=== PATIENT | female | born 1965 | race Caucasian/White ===

== ENCOUNTER 2017-09-30 21:42 | Emergency (ER) | payer SELFPAY ==
[~2017-09-30] VITALS: Ht 157.5 cm; Wt 53.1 kg
[2017-09-30 21:51] VITALS: BP 139/91
--- NOTE | 2017-09-30 21:57 | PHYS DOC ---
Past Medical History Past Medical History: No Pertinent History Past Surgical History: Other Additional Past Surgical Histo: neck Smoking: Cigarettes Alcohol Use: Occasionally Drug Use: Marijuana Adult General Chief Complaint Chief Complaint: FLU SYMPTOM HPI HPI Patient is a 52 year old female presents to the emergency department by way of EMS. Patient was at the [facility] when she stated she started feeling like she was having flulike symptoms. She states that she has had 3 emesis with the last one being 45 minutes prior to arrival. Patient denies any blood in the emesis. Patient also stated denies any diarrhea. Patient does have a local grade fever upon admission here to the emergency department at 99.9. Patient denies obtaining a flu vaccination this year. She does state she has a history of asthma. She denies having to use her inhalers more frequently than normal. She does have a history of smoking. She does state she uses recreational drugs with marijuana being used approximately 2 days ago. Review of Systems Review of Systems Constitutional: Fever, complain of generalized body aches and discomfort. Eyes: Denies change in visual acuity, redness, or eye pain [] HENT: Denies nasal congestion or sore throat [] Respiratory: Denies cough or shortness of breath [] Cardiovascular: No additional information not addressed in HPI [] GI: Denies abdominal pain, complaining of nausea vomiting denies diarrhea : Denies dysuria or hematuria [] Musculoskeletal: Denies back pain or joint pain [] Integument: Denies rash or skin lesions [] Neurologic: Denies headache, focal weakness or sensory changes [] Endocrine: Denies polyuria or polydipsia [] All other systems were reviewed and found to be within normal limits, except as documented in this note. Current Medications Current Medications Current Medications Medications (Trade) Dose Ordered Sig/Aureliano Start Time Stop Time Status Last Admin Dose Admin Ketorolac Tromethamine (Toradol Im) 60 mg 1X ONCE 09/30/17 22:30 09/30/17 22:31 DC 09/30/17 22:16 60 MG Ondansetron HCl (Zofran Odt) 4 mg 1X ONCE 09/30/17 22:30 09/30/17 22:31 DC 09/30/17 22:15 4 MG Allergies Allergies Allergies Coded Allergies Type Severity Reaction Last Updated Verified Penicillins Allergy Intermediate 09/30/17 Yes cephalexin Allergy Mild hives 09/30/17 Yes codeine Adverse Reaction Mild vomiting 09/30/17 Yes Physical Exam Physical Exam Constitutional: Well developed, well nourished, no acute distress, non-toxic appearance. [] HENT: Normocephalic, atraumatic, bilateral external ears normal, oropharynx moist, no oral exudates, nose normal. Bilateral tympanic membranes appear to be normal. Patient with frontal and maxillary sinus tenderness. Patient with erythematous noted no exudate noted postnasal drip noted. Eyes: PERRLA, EOMI, conjunctiva normal, no discharge. [] Neck: Normal range of motion, no tenderness, supple, no stridor. [] Cardiovascular:Heart rate regular rhythm, no murmur [] Lungs & Thorax: Bilateral breath sounds clear to auscultation [] Skin: Warm, dry, no erythema, no rash. [] Extremities: No tenderness, no cyanosis, no clubbing, ROM intact, no edema. [] Neurologic: Alert and oriented X 3, normal motor function, normal sensory function, no focal deficits noted. [] Psychologic: Affect normal, judgement normal, mood normal. [] Current Patient Data Vital Signs Vital Signs Date Time Temp Pulse Resp B/P (MAP) Pulse Ox O2 Delivery O2 Flow Rate FiO2 09/30/17 21:51 99.8 108 24 98 Room Air 99.8 Lab Values Laboratory Tests Test 09/30/17 21:58 Influenza Type A Antigen Negative (NEGATIVE) Influenza Type B Antigen Negative (NEGATIVE) EKG EKG [] Radiology/Procedures Radiology/Procedures [] Course & Med Decision Making Course & Med Decision Making Pertinent Labs and Imaging studies reviewed. (See chart for details) Influenza swab was negative. Patient was provided with Zofran here in the emergency department was provided with by mouth fluids with no emesis noted. She was provided with Toradol for generalized body aches and discomfort as well as low-grade fever. Patient will be discharged home with prescription for Zofran with recommendations for clear liquid diet for the next 24 hours. Recommended Tylenol or ibuprofen for fever chills or generalized body aches and discomfort. Recommended that she follow-up to primary care physician within the next 3-5 days. Recommended that she stop smoking and to stop using recreational drugs. Patient will be discharged home in stable condition signs and symptoms to return back to the emergency department has been provided. All questions and concerns been answered at the patients bedside. [] Dragon Disclaimer Dragon Disclaimer This electronic medical record was generated, in whole or in part, using a voice recognition dictation system. Departure Departure Impression: Primary Impression: Viral infection Disposition: 01 HOME, SELF-CARE Condition: STABLE Patient Instructions: Clear Liquid Diet, [id number], Smoking Cessation, Tips For Success, Viral Infections, [id number] Additional Instructions: Activity as tolerated. Tylenol or ibuprofen for fever chills or generalized body aches and discomfort. Zofran as needed for nausea and vomiting. Clear liquid diet for the next 24 hours. Follow-up with primary care physician next 3-5 days. Return back to the emergency department for signs and symptoms that become worse. Scripts Ondansetron (ZOFRAN ODT) 4 Mg Tab.rapdis 1 TAB SL Q8HRS, #10 TAB Prov: ELVIA BAPTISTE APRN 09/30/17 ELVIA BAPTISTE APRN Sep 30, 2017 21:57
[2017-09-30] MEDS ORDERED: ONDANSETRON ODT 4 MG TAB.RAPDIS. PO ONE (22:30)
[2017-09-30] MEDS ORDERED: KETOROLAC 60 MG/2 ML INJ. IM ONE (22:30)
[2017-09-30 22:49] LABS: OBC FLU VALID
[2017-09-30] MEDS ORDERED: ONDA4TAB10 SL (22:55)
== END 2017-09-30 23:02 | disposition home or self-care (01) ==
LOC: ER 21:42
DX: B34.9 Viral infection, unspecified (principal); J45.909 Unspecified asthma, uncomplicated; F17.210 Nicotine dependence, cigarettes, uncomplicated; F12.10 Cannabis abuse, uncomplicated; Z88.0 Allergy status to penicillin; Z79.899 Other long term (current) drug therapy; Z88.1 Allergy status to other antibiotic agents; Z88.5 Allergy status to narcotic agent
CPT/HCPCS: 87804; 96372; 99284; J1885; Q0162

== ENCOUNTER 2018-09-03 10:46 | Emergency (ER) | payer SELFPAY ==
[~2018-09-03] VITALS: Ht 157.5 cm; Wt 53.1 kg
[~2018-09-03 10:46] MED LIST: ONDA4TAB10 SL
[2018-09-03 11:05] VITALS: BP 160/84
--- NOTE | 2018-09-03 11:52 | RAD ---
CT of the orbits without contrast, 09/03/2018: HISTORY: Vision reduction, recent foreign body removal from right eye Noncontrast scans were obtained as requested. The globes are unremarkable. There is no evidence of a retained radiopaque foreign body in either orbit. No orbital mass or unusual fluid collection is seen. No bony abnormality is detected. No free fluid is evident in the paranasal sinuses. IMPRESSION: No significant abnormality is detected. PQRS Compliance Statement: One or more of the following individualized dose reduction techniques were utilized for this examination: 1. Automated exposure control 2. Adjustment of the mA and/or kV according to patient size 3. Use of iterative reconstruction technique Electronically signed by: Camacho Erwin MD (09/03/2018 11:48 AM) [facility]
--- NOTE | 2018-09-03 12:09 | PHYS DOC ---
Past Medical History Past Medical History: No Pertinent History, Asthma Past Surgical History: Other Additional Past Surgical Histo: neck,BACK Alcohol Use: Occasionally Drug Use: Marijuana Adult General Chief Complaint Chief Complaint: EYE PROBLEMS HPI HPI Patient is a 53 year old [f__sex] who presents with [] Review of Systems Review of Systems Constitutional: Denies fever or chills [] Eyes: Denies change in visual acuity, redness, or eye pain [] HENT: Denies nasal congestion or sore throat [] Respiratory: Denies cough or shortness of breath [] Cardiovascular: No additional information not addressed in HPI [] GI: Denies abdominal pain, nausea, vomiting, bloody stools or diarrhea [] : Denies dysuria or hematuria [] Musculoskeletal: Denies back pain or joint pain [] Integument: Denies rash or skin lesions [] Neurologic: Denies headache, focal weakness or sensory changes [] Endocrine: Denies polyuria or polydipsia [] All other systems were reviewed and found to be within normal limits, except as documented in this note. Allergies Allergies Allergies Coded Allergies Type Severity Reaction Last Updated Verified Penicillins Allergy Intermediate 09/30/17 Yes cephalexin Allergy Mild hives 09/30/17 Yes codeine Adverse Reaction Mild vomiting 09/30/17 Yes Physical Exam Physical Exam Constitutional: Well developed, well nourished, no acute distress, non-toxic appearance. [] HENT: Normocephalic, atraumatic, bilateral external ears normal, oropharynx moist, no oral exudates, nose normal. [] Eyes: PERRLA, EOMI, conjunctiva normal, no discharge. [] Neck: Normal range of motion, no tenderness, supple, no stridor. [] Cardiovascular:Heart rate regular rhythm, no murmur [] Lungs & Thorax: Bilateral breath sounds clear to auscultation [] Abdomen: Bowel sounds normal, soft, no tenderness, no masses, no pulsatile masses. [] Skin: Warm, dry, no erythema, no rash. [] Back: No tenderness, no CVA tenderness. [] Extremities: No tenderness, no cyanosis, no clubbing, ROM intact, no edema. [] Neurologic: Alert and oriented X 3, normal motor function, normal sensory function, no focal deficits noted. [] Psychologic: Affect normal, judgement normal, mood normal. [] Current Patient Data Vital Signs Vital Signs Date Time Temp Pulse Resp B/P (MAP) Pulse Ox O2 Delivery O2 Flow Rate FiO2 09/03/18 11:05 98.6 97 20 160/84 (109) 99 Room Air 98.6 EKG EKG [] Radiology/Procedures Radiology/Procedures [] Course & Med Decision Making Course & Med Decision Making Pertinent Labs and Imaging studies reviewed. (See chart for details) [] Dragon Disclaimer Dragon Disclaimer This electronic medical record was generated, in whole or in part, using a voice recognition dictation system. Departure Departure Impression: Primary Impression: Blurry vision Disposition: HOME, SELF-CARE Condition: STABLE Referrals: NO PCP (PCP) HORACIO WINSTON MD Patient Instructions: Eye - Blurred Vision Additional Instructions: Follow-up with ophthalmology tomorrow for a more comprehensive check of your eye. If worsening return to the emergency department. MARTY MENDIOLA APRN Sep 03, 2018 12:09
== END 2018-09-03 12:22 | disposition home or self-care (01) ==
LOC: ER 10:46
DX: H53.8 Other visual disturbances (principal); J45.909 Unspecified asthma, uncomplicated; Z88.0 Allergy status to penicillin; Z88.1 Allergy status to other antibiotic agents; Z88.5 Allergy status to narcotic agent
CPT/HCPCS: 70480; 99284

== ENCOUNTER 2018-11-23 12:04 | Emergency (ER) | payer SELFPAY ==
[~2018-11-23] VITALS: Ht 157.5 cm; Wt 55.3 kg
[~2018-11-23 12:04] MED LIST changes: +CIPR500T94 PO; +ONDA4TAB7 PO
[2018-11-23 12:16] VITALS: BP 137/86
--- NOTE | 2018-11-23 12:47 | PHYS DOC ---
Past Medical History Past Medical History: Asthma, Bipolar, COPD, Depression Past Surgical History: Other Additional Past Surgical Histo: neck,BACK Alcohol Use: Occasionally Drug Use: Marijuana Adult General Chief Complaint Chief Complaint: ITCHING HPI HPI Patient is a 53 year old female with history of depression, bipolar, anxiety, asthma, who presents today complaining of itching for the last 3 weeks. Patient states she's been itching so much that she can't sleep. She is also complaining of bruising from the itching. Patient states symptoms began 3 weeks ago after she visited the mother. Patient states she has attempted to clean everything at home but her symptoms are not clearing up. She states she's tried over-the- counter remedies with no success. Review of Systems Review of Systems Constitutional: Reports insomnia. Denies fever or chills [] Musculoskeletal: Denies back pain or joint pain [] Integument: Reports itching and bruising. Neurologic: Denies headache, focal weakness or sensory changes [] All other systems were reviewed and found to be within normal limits, except as documented in this note. Allergies Allergies Allergies Coded Allergies Type Severity Reaction Last Updated Verified Penicillins Allergy Intermediate 09/30/17 Yes cephalexin Allergy Mild hives 09/30/17 Yes codeine Adverse Reaction Mild vomiting 09/30/17 Yes Physical Exam Physical Exam Constitutional: Well developed, well nourished, no acute distress, non-toxic appearance. [] Skin: Very dry skin, patient is actively itching in the ED. Old bruising noted to bilateral inner thighs. Back: No tenderness, no CVA tenderness. [] Extremities: No tenderness, no cyanosis, no clubbing, ROM intact, no edema. [] Neurologic: Alert and oriented X 3, normal motor function, normal sensory function, no focal deficits noted. [] Psychologic: Affect normal, judgement normal, mood normal. [] Current Patient Data Vital Signs Vital Signs Date Time Temp Pulse Resp B/P (MAP) Pulse Ox O2 Delivery O2 Flow Rate FiO2 11/23/18 12:16 97.9 91 18 137/86 (103) 98 Room Air 97.9 EKG EKG [] Radiology/Procedures Radiology/Procedures [] Course & Med Decision Making Course & Med Decision Making Pertinent Labs and Imaging studies reviewed. (See chart for details) This is a 53-year-old female patient presented to the ED today with itching for 3 weeks. Patient has tried [id number] remedies with no relief. Patient was discharged with Atarax and triamcinolone cream. Follow-up with PCP in 1-2 weeks. Rosmery Disclaimer Dragon Disclaimer This electronic medical record was generated, in whole or in part, using a voice recognition dictation system. Departure Departure Impression: Primary Impression: Itching Disposition: HOME, SELF-CARE Condition: STABLE Referrals: NO PCP (PCP) AMBERLY CHOU MD follow up in 1-2 weeks Patient Instructions: Itching-Brief Additional Instructions: You have evaluated in the emergency room for itching. Take the medication ordered as prescribed. Follow-up with your doctor or the provided specialist in 1-2 weeks as needed. Scripts Triamcinolone Acetonide (TRIAMCINOLONE ACETONIDE 0.1% OINT) 15 Gm Oint...g. 1 KIAN TP TID for WOUND CARE, #1 TUBE Prov: DANNIE FELIX APRN 11/23/18 Hydroxyzine Hcl (HYDROXYZINE HCL) 50 Mg Tablet 50 MG PO TID, #90 TAB Prov: DANNIE FELIX APRN 11/23/18 DANNIE FELIX APRN Nov 23, 2018 12:47
[2018-11-23] MEDS ORDERED: HYDR50TA PO (12:57)
[2018-11-23] MEDS ORDERED: TRIA15OI TP (12:57)
== END 2018-11-23 13:08 | disposition home or self-care (01) ==
LOC: ER 12:04
DX: L29.9 Pruritus, unspecified (principal); R23.3 Spontaneous ecchymoses; F31.9 Bipolar disorder, unspecified; J44.9 Chronic obstructive pulmonary disease, unspecified; Z88.0 Allergy status to penicillin; Z88.1 Allergy status to other antibiotic agents; Z88.5 Allergy status to narcotic agent
CPT/HCPCS: 99283

== ENCOUNTER 2018-11-25 11:11 | Emergency (ER) | payer SELFPAY ==
[~2018-11-25] VITALS: Ht 157.5 cm; Wt 55.3 kg
[~2018-11-25 11:11] MED LIST changes: +HYDR50TA PO; +TRIA15OI TP
[2018-11-25 11:35] LABS: BILIRUBIN,URINE NEGATIVE (NEG); CLARITY,URINE CLEAR; COLOR,URINE YELLOW; NITRITE,URINE NEGATIVE (NEG); PROTEIN,URINE NEGATIVE (NEG-TRACE)
[2018-11-25 11:37] VITALS: BP 120/75
[2018-11-25 11:52] LABS: BACTERIA,URINE FEW /HPF (0-FEW); SQUAMOUS EPITHELIAL CELL,UR MOD /LPF
[2018-11-25] MEDS ORDERED: CYCL10TA2 PO (12:17)
[2018-11-25] MEDS ORDERED: DICL50TA4 PO (12:17)
--- NOTE | 2018-11-25 12:18 | PHYS DOC ---
Past Medical History Past Medical History: Asthma, Bipolar, COPD, Depression (DANNIE FELIX APRN) Past Surgical History: Other Additional Past Surgical Histo: neck,BACK (DANNIE FELIX APRN) Alcohol Use: Occasionally Drug Use: Marijuana (DANNIE FELIX APRN) Adult General Chief Complaint Chief Complaint: PAIN ON URINATION [facility] HPI Patient is a 53 year old female with history of depression, COPD, bipolar, who presents to the ED today stating she's had dysuria for 6 weeks. Patient states she was seen in the ED 6 weeks ago, was diagnosed with UTI and sent home with antibiotics, patient states she never filled the prescription because she had other family issues going on. She is requesting the prescription, informed patient I will check her urine before I give her any prescription. (DANNIE FELIX APRN) Review of Systems Review of Systems Constitutional: Denies fever or chills [] Eyes: Denies change in visual acuity, redness, or eye pain [] HENT: Denies nasal congestion or sore throat [] Respiratory: Denies cough or shortness of breath [] Cardiovascular: No additional information not addressed in HPI [] GI: Denies abdominal pain, nausea, vomiting, bloody stools or diarrhea [] : Reports dysuria, denies hematuria [] Musculoskeletal: Denies back pain or joint pain [] Integument: Denies rash or skin lesions [] Neurologic: Denies headache, focal weakness or sensory changes [] All other systems were reviewed and found to be within normal limits, except as documented in this note. (DANNIE FELIX APRN) Allergies Allergies Allergies Coded Allergies Type Severity Reaction Last Updated Verified Penicillins Allergy Intermediate 09/30/17 Yes cephalexin Allergy Mild hives 09/30/17 Yes codeine Adverse Reaction Mild vomiting 09/30/17 Yes (HUNTER RODRIGUEZ MD) Physical Exam Physical Exam Constitutional: Well developed, well nourished, no acute distress, non-toxic appearance. [] HENT: Normocephalic, atraumatic, bilateral external ears normal, oropharynx moist, no oral exudates, nose normal. [] Eyes: PERRLA, EOMI, conjunctiva normal, no discharge. [] Neck: Normal range of motion, no tenderness, supple, no stridor. [] Cardiovascular:Heart rate regular rhythm, no murmur [] Lungs & Thorax: Bilateral breath sounds clear to auscultation [] Abdomen: Bowel sounds normal, soft, no tenderness, no masses, no pulsatile masses. [] Skin: Warm, dry, no erythema, no rash. [] Back: No tenderness, no CVA tenderness. [] Extremities: No tenderness, no cyanosis, no clubbing, ROM intact, no edema. [] Neurologic: Alert and oriented X 3, normal motor function, normal sensory function, no focal deficits noted. [] Psychologic: Affect normal, judgement normal, mood normal. [] (DANNIE FELIX APRN) Current Patient Data Vital Signs Vital Signs Date Time Temp Pulse Resp B/P (MAP) Pulse Ox O2 Delivery O2 Flow Rate FiO2 11/25/18 11:37 98.9 71 16 120/75 (90) 99 Room Air 98.9 (HUNTER RODRIGUEZ MD) Lab Values Laboratory Tests Test 11/25/18 11:26 Urine Collection Type Unknown Urine Color Yellow Urine Clarity Clear Urine pH 7.0 Urine Specific [place] 1.015 Urine Protein Negative mg/dL (NEG-TRACE) Urine Glucose (UA) Negative mg/dL (NEG) Urine Ketones (Stick) Negative mg/dL (NEG) Urine Blood Negative (NEG) Urine Nitrite Negative (NEG) Urine Bilirubin Negative (NEG) Urine Urobilinogen Dipstick 1.0 mg/dL (0.2 mg/dL) Urine Leukocyte Esterase Negative (NEG) Urine RBC 1-2 /HPF (0-2) Urine WBC 1-4 /HPF (0-4) Urine Squamous Epithelial Cells Mod /LPF Urine Bacteria Few /HPF (0-FEW) Urine Mucus Slight /LPF (HUNTER RODRIGUEZ MD) EKG EKG [] (DANNIE FELIX APRN) Radiology/Procedures Radiology/Procedures [] (DANNIE FELIX APRN) Course & Med Decision Making Course & Med Decision Making Pertinent Labs and Imaging studies reviewed. (See chart for details) This is a 53-year-old female patient presenting to the ED today requesting a prescription for antibiotics. She's had dysuria for 6 weeks. She states she was seen in the ED 6 weeks ago and was given prescription for antibiotics which she did not fill because of other family issues. Urine analysis today has no infection, no blood. Patient was discharged to home. Instructed to follow-up with PCP in 1-2 weeks. (DANNIE FELIX APRN) Course & Med Decision Making Staff Physician Addendum: I was working in the ER during the course of this patient's visit. I was available for consultation as needed, but I was not directly involved in the care of this patient. (HUNTER RODRIGUEZ MD) Dragon Disclaimer Dragon Disclaimer This electronic medical record was generated, in whole or in part, using a voice recognition dictation system. (DANNIE FELIX APRN) Departure Departure Impression: Primary Impression: Dysuria Disposition: HOME, SELF-CARE Condition: STABLE Referrals: NO PCP (PCP) Follow-up with your doctor in 1-2 weeks Patient Instructions: Dysuria-Brief Additional Instructions: You were evaluated in the emergency room for dysuria. Your urine analysis shows there is no infection in your urine right now, we will culture the urine if it grows any infection we will let you know. Take the prescribed medications as needed for pain. Continue pushing fluids. Follow-up with your doctor in 2 weeks. Scripts Cyclobenzaprine Hcl (CYCLOBENZAPRINE HCL) 10 Mg Tablet 1 TAB PO TID, #30 TAB Prov: DANNIE FELIX APRN 11/25/18 Diclofenac Sodium (DICLOFENAC SODIUM) 50 Mg Tablet. 1 TAB PO BID, #60 TAB 0 Refills Prov: DANNIE FELIX APRN 11/25/18 DANNIE FELIX APRN Nov 25, 2018 12:18 HUNTER RODRIGUEZ MD Nov 25, 2018 17:27
== END 2018-11-25 12:23 | disposition home or self-care (01) ==
LOC: ER 11:11
DX: R30.0 Dysuria (principal); J44.9 Chronic obstructive pulmonary disease, unspecified; F31.9 Bipolar disorder, unspecified; Z88.0 Allergy status to penicillin; Z88.5 Allergy status to narcotic agent; Z88.1 Allergy status to other antibiotic agents
CPT/HCPCS: 81001; 99283

== ENCOUNTER 2018-12-05 11:38 | Emergency (ER) | payer SELFPAY ==
[~2018-12-05] VITALS: Ht 157.5 cm; Wt 58.1 kg
[~2018-12-05 11:38] MED LIST changes: +CYCL10TA2 PO; +DICL50TA4 PO
[2018-12-05 12:22] LABS: BILIRUBIN,URINE NEGATIVE (NEG); CLARITY,URINE CLEAR; COLOR,URINE YELLOW; NITRITE,URINE NEGATIVE (NEG); PROTEIN,URINE NEGATIVE (NEG-TRACE); UROBILINOGEN,URINE 0.2 mg/dL (0.2 mg/dL)
[2018-12-05 12:32] LABS: BACTERIA,URINE FEW /HPF (0-FEW); RBC,URINE 0 /HPF (0-2); SQUAMOUS EPITHELIAL CELL,UR MOD /LPF; WBC,URINE OCC /HPF (0-4)
[2018-12-05 12:58] LABS: BASO # 0.1 x10^3/uL (0.0-0.2); BASO % 1 % (0-3); EOS # 0.3 x10^3/uL (0.0-0.7); EOS % 4 % (0-3); HEMATOCRIT 38.9 % (36.0-47.0); HEMOGLOBIN 13.2 g/dL (12.0-15.5); LYMPH # 2.4 x10^3/uL (1.0-4.8); LYMPH % 31 % (24-48); MEAN CORPUSCULAR HEMOGLOBIN 30 pg (25-35); MEAN CORPUSCULAR HGB CONC 34 g/dL (31-37); MEAN CORPUSCULAR VOLUME 88 fL (79-100); MONO # 0.6 x10^3/uL (0.0-1.1); MONO % 8 % (0-9); NEUT # 4.4 x10^3uL (1.8-7.7); NEUT % 57 % (31-73); PLATELET COUNT 290 x10^3/uL (140-400); RED BLOOD COUNT 4.41 x10^6/uL (3.50-5.40); RED CELL DISTRIBUTION WIDTH 13.7 % (11.5-14.5); WHITE BLOOD COUNT 7.6 x10^3/uL (4.0-11.0)
[2018-12-05 13:07] LABS: CREATININE 0.8 mg/dL (0.6-1.0); POTASSIUM 4.5 mmol/L (3.5-5.1)
[2018-12-05 13:13] LABS: ALBUMIN 3.4 g/dL (3.4-5.0); ALBUMIN/GLOBULIN RATIO 0.6 (1.0-1.7); PROTHROMBIN TIME PATIENT 15.1 SEC (11.7-14.0); TOTAL BILIRUBIN 0.3 mg/dL (0.2-1.0)
[2018-12-05 13:21] LABS: CREATINE KINASE 55 U/L (26-192)
[2018-12-05] MEDS ORDERED: fentaNYL PF VIAL 100 MCG/2 ML VIAL IV ONE (14:45)
[2018-12-05] MEDS ORDERED: IOHEXOL 300 MG/ML 100ML VIAL. ONE (15:16)
--- NOTE | 2018-12-05 15:48 | RAD ---
CT ABD PELV W/ IV CONTRST ONLY Indication: RIGHT SIDE ABDOMINAL PAIN, FLANK PAIN X 1 DAY
IV OMNI 300 75 MLS Exposure: One or more of the following individualized dose reduction techniques were utilized for this examination: 1. Automated exposure control 2. Adjustment of the mA and/or kV according to patient size 3. Use of iterative reconstruction technique. Comparison: None are available. Contrast: Intravenous contrast was given. No oral contrast per request. Findings: Lung bases are clear. Liver mildly enlarged. Spleen borderline enlarged at 12 cm. Pancreas unremarkable. No adrenal mass. Symmetric renal enhancement. There appear to be a tiny nonobstructive renal calculi bilaterally. No hydronephrosis. No calcified gallstone. No significant aortic aneurysm. No significant lymph node enlargement. No evidence of bowel obstruction. No evidence of acute colitis. At least a portion of a normal appendix is thought to be visualized. No inflammatory type changes are seen in the right lower quadrant. No ascites or pneumoperitoneum. The urinary bladder is not adequately distended for evaluation. No evidence of pelvic mass. Mild degenerative changes of the spine. Endplate irregularity is likely developmental. Mild lumbar stenosis. Degenerative changes at the sacroiliac joints with subchondral sclerosis. IMPRESSION: 1. No evidence of acute abnormality or acute appendicitis. 2. Mild hepatomegaly. 3. Borderline splenic enlargement. 4. There may be tiny nonobstructive renal calculi bilaterally. Electronically signed by: Ruben Mackey MD (12/05/2018 3:44 PM) [facility]
--- NOTE | 2018-12-05 17:15 | RAD ---
Examination: ABDOMEN COMPLETE History: RUQ PAIN, HEP C Comparison/Correlation: None Findings: Upper abdominal ultrasound exam was performed. Hepatic echotexture is at the upper limit of normal. Pablo's lobe of the liver evident. No biliary dilatation. Gallbladder is normal. No cholelithiasis or findings of cholecystitis. Portal venous flow is normal. Right kidney measures 10.4 seen by 5.2 cm x 4.1 cm P left kidney measures 9.18 x 4.16 x 4 cm. No hydronephrosis or nephrolithiasis. Renal contours are unremarkable. Proximal pancreas is normal. Distal pancreas is obscured by bowel gas. Spleen is unremarkable. Abdominal aorta is unremarkable. Inferior vena cava is unremarkable. No upper abdominal ascites. Impression: No acute process. Unremarkable exam. Electronically signed by: Brian Bryant MD (12/05/2018 5:12 PM) [id number]
--- NOTE | 2018-12-05 17:51 | PHYS DOC ---
Past Medical History Past Medical History: No Pertinent History Past Surgical History: Other Additional Past Surgical Histo: neck,BACK Alcohol Use: None Drug Use: None Adult General Chief Complaint Chief Complaint: ABDOMINAL PAIN HPI HPI Patient is a 53 year old female who presented ER today for evaluation of bilateral flank pain that radiated to her right side started last night. Patient could not sleep last night due to the pain. The pain is on the right side. Patient denies any nausea vomiting. Patient denies any fever. She denies any cough, no fever. Patient denies any trouble breathing. Review of Systems Review of Systems Constitutional: Denies fever or chills [] Eyes: Denies change in visual acuity, redness, or eye pain [] HENT: Denies nasal congestion or sore throat [] Respiratory: Denies cough or shortness of breath [] Cardiovascular: No additional information not addressed in HPI [] GI: Positive for abdominal pain, NO nausea, vomiting, bloody stools or diarrhea [] : Denies dysuria or hematuria [] Musculoskeletal: Denies back pain or joint pain [] Integument: Denies rash or skin lesions [] Neurologic: Denies headache, focal weakness or sensory changes [] Endocrine: Denies polyuria or polydipsia [] All other systems were reviewed and found to be within normal limits, except as documented in this note. Current Medications Current Medications Current Medications Medications (Trade) Dose Ordered Sig/Aureliano Start Time Stop Time Status Last Admin Dose Admin Fentanyl Citrate (Fentanyl 2ml Vial) 50 mcg 1X ONCE 12/05/18 14:45 12/05/18 14:46 DC 12/05/18 14:56 50 MCG Iohexol (Omnipaque 300 Mg/ml) 100 ml STK-MED ONCE 12/05/18 15:16 12/05/18 15:17 DC Allergies Allergies Allergies Coded Allergies Type Severity Reaction Last Updated Verified Penicillins Allergy Intermediate 09/30/17 Yes cephalexin Allergy Mild hives 09/30/17 Yes codeine Adverse Reaction Mild vomiting 09/30/17 Yes Physical Exam Physical Exam Constitutional: Well developed, well nourished, no acute distress, non-toxic appearance. [] HENT: Normocephalic, atraumatic, bilateral external ears normal, oropharynx moist, no oral exudates, nose normal. [] Eyes: PERRLA, EOMI, conjunctiva normal, no discharge. [] Neck: Normal range of motion, no tenderness, supple, no stridor. [] Cardiovascular:Heart rate regular rhythm, no murmur [] Lungs & Thorax: Bilateral breath sounds clear to auscultation [] Abdomen: Bowel sounds normal, soft, there was tenderness to palpation in RUQ, RIGHT FLANK, no masses, no pulsatile masses. [] Skin: Warm, dry, no erythema, no rash. [] Back: No tenderness, no CVA tenderness. [] Extremities: No tenderness, no cyanosis, no clubbing, ROM intact, no edema. [] Neurologic: Alert and oriented X 3, normal motor function, normal sensory function, no focal deficits noted. [] Psychologic: Affect normal, judgement normal, mood normal. [] Current Patient Data Vital Signs Vital Signs Date Time Temp Pulse Resp B/P (MAP) Pulse Ox O2 Delivery O2 Flow Rate FiO2 12/05/18 18:00 90 16 123/78 (93) 99 Room Air 12/05/18 12:06 97.8 97.8 Lab Values Laboratory Tests Test 12/05/18 11:59 12/05/18 12:47 Urine Collection Type Unknown Urine Color Yellow Urine Clarity Clear Urine pH 6.0 Urine Specific [place] 1.015 Urine Protein Negative mg/dL (NEG-TRACE) Urine Glucose (UA) Negative mg/dL (NEG) Urine Ketones (Stick) Negative mg/dL (NEG) Urine Blood Negative (NEG) Urine Nitrite Negative (NEG) Urine Bilirubin Negative (NEG) Urine Urobilinogen Dipstick 0.2 mg/dL (0.2 mg/dL) Urine Leukocyte Esterase Trace (NEG) Urine RBC 0 /HPF (0-2) Urine WBC Occ /HPF (0-4) Urine Squamous Epithelial Cells Mod /LPF Urine Bacteria Few /HPF (0-FEW) Urine Mucus Slight /LPF White Blood Count 7.6 x10^3/uL (4.0-11.0) Red Blood Count 4.41 x10^6/uL (3.50-5.40) Hemoglobin 13.2 g/dL (12.0-15.5) Hematocrit 38.9 % (36.0-47.0) Mean Corpuscular Volume 88 fL (79-100) Mean Corpuscular Hemoglobin 30 pg (25-35) Mean Corpuscular Hemoglobin Concent 34 g/dL (31-37) Red Cell Distribution Width 13.7 % (11.5-14.5) Platelet Count 290 x10^3/uL (140-400) Neutrophils (%) (Auto) 57 % (31-73) Lymphocytes (%) (Auto) 31 % (24-48) Monocytes (%) (Auto) 8 % (0-9) Eosinophils (%) (Auto) 4 % (0-3) H Basophils (%) (Auto) 1 % (0-3) Neutrophils # (Auto) 4.4 x10^3uL (1.8-7.7) Lymphocytes # (Auto) 2.4 x10^3/uL (1.0-4.8) Monocytes # (Auto) 0.6 x10^3/uL (0.0-1.1) Eosinophils # (Auto) 0.3 x10^3/uL (0.0-0.7) Basophils # (Auto) 0.1 x10^3/uL (0.0-0.2) Prothrombin Time 15.1 SEC (11.7-14.0) H Prothrombin Time INR 1.2 (0.8-1.1) H PTT 34 SEC (24-38) Sodium Level 140 mmol/L (136-145) Potassium Level 4.5 mmol/L (3.5-5.1) Chloride Level 103 mmol/L (98-107) Carbon Dioxide Level 26 mmol/L (21-32) Anion Gap 11 (6-14) Blood Urea Nitrogen 26 mg/dL (7-20) H Creatinine 0.8 mg/dL (0.6-1.0) Estimated GFR (Cockcroft-Gault) 75.0 BUN/Creatinine Ratio 33 (6-20) H Glucose Level 103 mg/dL (70-99) H Calcium Level 9.0 mg/dL (8.5-10.1) Total Bilirubin 0.3 mg/dL (0.2-1.0) Aspartate Amino Transferase (AST) 289 U/L (15-37) H Alanine Aminotransferase (ALT) 163 U/L (14-59) H Alkaline Phosphatase 82 U/L (46-116) Creatine Kinase 55 U/L (26-192) Creatine Kinase MB (Mass) 1.6 ng/mL (0.0-3.6) Creatine Kinase MB Relative Index % (0-4) Total Protein 9.0 g/dL (6.4-8.2) H Albumin 3.4 g/dL (3.4-5.0) Albumin/Globulin Ratio 0.6 (1.0-1.7) L Lipase 168 U/L (73-393) Laboratory Tests 12/05/18 12:47 Laboratory Tests 12/05/18 12:47 Microbiology 12/05/18 Urine Culture - Final, Complete 12/05/18 Urine Culture Result 1 (CLAUDIA) - Final, Complete EKG EKG [] Radiology/Procedures Radiology/Procedures [facility] [address] [place] [address] IMAGING REPORT Signed PATIENT: IGNACIO OREILLY ACCOUNT: [id number] : 1965 LOCATION: ER AGE: 53 SEX: F EXAM STATUS: REG ER ORD. PHYSICIAN: TALIA JENSEN DO REASON: right side abdominal pain PROCEDURE: CT ABD PELV W/ IV CONTRST ONLY CT ABD PELV W/ IV CONTRST ONLY Indication: RIGHT SIDE ABDOMINAL PAIN, FLANK PAIN X 1 DAY
IV OMNI 300 75 MLS Exposure: One or more of the following individualized dose reduction techniques were utilized for this examination: 1. Automated exposure control 2. Adjustment of the mA and/or kV according to patient size 3. Use of iterative reconstruction technique. Comparison: None are available. Contrast: Intravenous contrast was given. No oral contrast per request. Findings: Lung bases are clear. Liver mildly enlarged. Spleen borderline enlarged at 12 cm. Pancreas unremarkable. No adrenal mass. Symmetric renal enhancement. There appear to be a tiny nonobstructive renal calculi bilaterally. No hydronephrosis. No calcified gallstone. No significant aortic aneurysm. No significant lymph node enlargement. No evidence of bowel obstruction. No evidence of acute colitis. At least a portion of a normal appendix is thought to be visualized. No inflammatory type changes are seen in the right lower quadrant. No ascites or pneumoperitoneum. The urinary bladder is not adequately distended for evaluation. No evidence of pelvic mass. Mild degenerative changes of the spine. Endplate irregularity is likely developmental. Mild lumbar stenosis. Degenerative changes at the sacroiliac joints with subchondral sclerosis. IMPRESSION: 1. No evidence of acute abnormality or acute appendicitis. 2. Mild hepatomegaly. 3. Borderline splenic enlargement. 4. There may be tiny nonobstructive renal calculi bilaterally. Electronically signed by: Ruben Mackey MD (12/05/2018 3:44 PM) [facility] DICTATED and SIGNED BY: RUBEN MACKEY MD DATE: 12/05/18 1538 Course & Med Decision Making Course & Med Decision Making Pertinent Labs and Imaging studies reviewed. (See chart for details) [] Dragon Disclaimer Dragon Disclaimer This electronic medical record was generated, in whole or in part, using a voice recognition dictation system. Departure Departure Impression: Primary Impression: Abdominal pain Disposition: 01 HOME, SELF-CARE Condition: STABLE Referrals: NO PCP (PCP) FOLLOW UP WITH YOUR DOCTOR FOR A REFFERAL TO GI SPECIALIST ABOUT ELEVATED LIVER FUNCTION TEST. Patient Instructions: Abdominal Pain TALIA JENSEN DO Dec 05, 2018 17:51
[2018-12-05 18:00] VITALS: BP 123/78
== END 2018-12-05 19:10 | disposition home or self-care (01) ==
LOC: ER 11:38
DX: R10.11 Right upper quadrant pain (principal); R16.0 Hepatomegaly, not elsewhere classified; M48.061 Spinal stenosis, lumbar region without neurogenic claudication; M47.896 Other spondylosis, lumbar region; Z88.0 Allergy status to penicillin; Z88.1 Allergy status to other antibiotic agents; Z88.5 Allergy status to narcotic agent
CPT/HCPCS: 36415; 74177; 76700; 80053; 81001; 82553; 83690; 85025; 85610; 85730; 87086; 96374; 99284; J3010

== ENCOUNTER 2018-12-27 10:38 | Emergency (ER) | payer SELFPAY ==
[~2018-12-27] VITALS: Ht 157.5 cm; Wt 58.1 kg
[2018-12-27 11:12] VITALS: BP 125/85
[2018-12-27] MEDS ORDERED: ALPRAZolam 0.5 MG TABLET PO ONE (11:30)
[2018-12-27] MEDS ORDERED: HYDR25TA PO (12:07)
--- NOTE | 2018-12-27 12:08 | PHYS DOC ---
Past Medical History Past Medical History: Anxiety, Bipolar Past Surgical History: Other Additional Past Surgical Histo: neck,BACK Additional Information: [place] 1 ppd Alcohol Use: None Drug Use: None Adult General Chief Complaint Chief Complaint: INSECT BITE HPI HPI Patient is a 53 year old female who presents with itching and anxiety. The patient states that she has a prescription for hydroxyzine to control her symptoms. She states that she was riding on the bus and lost her prescription. She was worried that she might of been exposed to bedbugs and started having an anxiety attack. She denies fever, purulent skin eruptions or headache. She states that she has a long history of anxiety. Review of Systems Review of Systems Constitutional: Denies fever or chills [] Respiratory: Denies cough or shortness of breath [] Cardiovascular: No additional information not addressed in HPI [] GI: Denies abdominal pain, nausea, vomiting, bloody stools or diarrhea [] : Denies dysuria or hematuria [] Musculoskeletal: Denies back pain or joint pain [] Integument: See history of present illness Neurologic: Denies headache, focal weakness or sensory changes [] Endocrine: Denies polyuria or polydipsia [] All other systems were reviewed and found to be within normal limits, except as documented in this note. Current Medications Current Medications Current Medications Medications (Trade) Dose Ordered Sig/Aureliano Start Time Stop Time Status Last Admin Dose Admin Alprazolam (Xanax) 0.5 mg 1X ONCE 12/27/18 11:30 12/27/18 11:31 DC 12/27/18 11:39 0.5 MG Allergies Allergies Allergies Coded Allergies Type Severity Reaction Last Updated Verified Penicillins Allergy Intermediate 09/30/17 Yes cephalexin Allergy Mild hives 09/30/17 Yes codeine Adverse Reaction Mild vomiting 09/30/17 Yes Physical Exam Physical Exam Constitutional: Well developed, well nourished, no acute distress, non-toxic appearance. [] Cardiovascular:Heart rate regular rhythm, no murmur [] Lungs & Thorax: Bilateral breath sounds clear to auscultation [] Abdomen: Bowel sounds normal, soft, no tenderness, no masses, no pulsatile masses. [] Skin: There are 2 reddened areas to the patient's chest that are obvious scratch das, no sign of infection or hives Back: No tenderness, no CVA tenderness. [] Extremities: No tenderness, no cyanosis, no clubbing, ROM intact, no edema. [] Neurologic: Alert and oriented X 3, normal motor function, normal sensory function, no focal deficits noted. [] Psychologic: Affect normal, judgement normal, mood normal. [] Current Patient Data Vital Signs Vital Signs Date Time Temp Pulse Resp B/P (MAP) Pulse Ox O2 Delivery O2 Flow Rate FiO2 12/27/18 11:12 98.0 78 14 125/85 (98) 98 Room Air 98.0 EKG EKG [] Radiology/Procedures Radiology/Procedures [] Course & Med Decision Making Course & Med Decision Making Pertinent Labs and Imaging studies reviewed. (See chart for details) []The patient was given a dose of Xanax in the emergency department. Dragon Disclaimer Dragon Disclaimer This electronic medical record was generated, in whole or in part, using a voice recognition dictation system. Departure Departure Impression: Primary Impression: Itching Additional Impression: Anxiety Disposition: 01 HOME, SELF-CARE Condition: STABLE Referrals: NO PCP (PCP) Patient Instructions: Anxiety and Panic Attacks, [id number], Itching-Brief Additional Instructions: Not drive or operate heavy machinery. Take the medication as directed. Follow- up with your primary care provider for future healthcare needs. Scripts Hydroxyzine Hcl (HYDROXYZINE HCL) 25 Mg Tablet 1 TAB PO TID for itching, #30 TAB Prov: MARTY MENDIOLA APRN 12/27/18 Problem Qualifiers MARTY MENDIOLA APRN Dec 27, 2018 12:08
== END 2018-12-27 12:02 | disposition home or self-care (01) ==
LOC: ER 10:38
DX: F41.9 Anxiety disorder, unspecified (principal); L29.9 Pruritus, unspecified; F31.9 Bipolar disorder, unspecified; F17.210 Nicotine dependence, cigarettes, uncomplicated; Z88.0 Allergy status to penicillin; Z88.1 Allergy status to other antibiotic agents; Z88.5 Allergy status to narcotic agent
CPT/HCPCS: 99284

== ENCOUNTER 2018-12-30 13:21 | Emergency (ER) | payer SELFPAY ==
[~2018-12-30] VITALS: Ht 160 cm; Wt 58.1 kg
[~2018-12-30 13:21] MED LIST changes: +HYDR25TA PO
[2018-12-30 14:53] LABS: BILIRUBIN,URINE NEGATIVE (NEG); CLARITY,URINE CLEAR; COLOR,URINE YELLOW; NITRITE,URINE NEGATIVE (NEG); PROTEIN,URINE NEGATIVE (NEG-TRACE); UROBILINOGEN,URINE 0.2 mg/dL (0.2 mg/dL)
[2018-12-30 15:01] LABS: BARBITURATES NEG (NEG); BENZODIAZEPINES NEG (NEG); CANNABINOIDS NEG (NEG); COCAINE NEG (NEG); METHADONE NEG (NEG); OPIATES NEG (NEG); PHENCYCLIDINE NEG (NEG)
[2018-12-30] MEDS: ALPRAZolam 0.5 MG TABLET PO ONE (15:03)
[2018-12-30 15:04] LABS: BACTERIA,URINE 0 /HPF (0-FEW); RBC,URINE 0 /HPF (0-2); SQUAMOUS EPITHELIAL CELL,UR FEW /LPF; WBC,URINE RARE /HPF (0-4)
[2018-12-30 15:11] LABS: AMPHETAMINE/METHAMPHETAMINE NEG (NEG)
[2018-12-30 15:13] VITALS: BP 125/85
[2018-12-30 15:27] LABS: BASO % 1 % (0-3); EOS # 0.2 x10^3/uL (0.0-0.7); EOS % 3 % (0-3); HEMATOCRIT 39.5 % (36.0-47.0); HEMOGLOBIN 13.3 g/dL (12.0-15.5); LYMPH # 2.7 x10^3/uL (1.0-4.8); LYMPH % 38 % (24-48); MEAN CORPUSCULAR HEMOGLOBIN 30 pg (25-35); MEAN CORPUSCULAR HGB CONC 34 g/dL (31-37); MEAN CORPUSCULAR VOLUME 88 fL (79-100); MONO # 0.6 x10^3/uL (0.0-1.1); MONO % 8 % (0-9); NEUT # 3.6 x10^3uL (1.8-7.7); NEUT % 50 % (31-73); PLATELET COUNT 282 x10^3/uL (140-400); RED BLOOD COUNT 4.49 x10^6/uL (3.50-5.40); RED CELL DISTRIBUTION WIDTH 13.8 % (11.5-14.5); WHITE BLOOD COUNT 7.2 x10^3/uL (4.0-11.0)
[2018-12-30 15:41] LABS: CALCIUM 9.1 mg/dL (8.5-10.1); CREATININE 0.8 mg/dL (0.6-1.0); POTASSIUM 4.4 mmol/L (3.5-5.1)
[2018-12-30 15:47] LABS: ALBUMIN 3.2 g/dL (3.4-5.0); ALBUMIN/GLOBULIN RATIO 0.5 (1.0-1.7); TOTAL BILIRUBIN 0.2 mg/dL (0.2-1.0); TOTAL PROTEIN 9.4 g/dL (6.4-8.2)
[2018-12-30] MEDS ORDERED: ALPR0.5T PO (16:04)
--- NOTE | 2018-12-30 16:05 | PHYS DOC ---
Past Medical History Past Medical History: Anxiety, Bipolar Past Surgical History: Other Additional Past Surgical Histo: neck,BACK Alcohol Use: None Drug Use: None Adult General Chief Complaint Chief Complaint: ANXIETY/PANIC ATTACK HPI HPI Patient is a 53 year old female who presents with itchiness and panic attacks. The patient was seen here recently for similar symptoms. She states that she had been taking the Vistaril at home but had a panic attack last night. The patient does have pruritus. She denies any skin infections. Review of Systems Review of Systems Constitutional: Denies fever or chills [] Eyes: Denies change in visual acuity, redness, or eye pain [] HENT: Denies nasal congestion or sore throat [] Respiratory: Denies cough or shortness of breath [] Cardiovascular: No additional information not addressed in HPI [] GI: Denies abdominal pain, nausea, vomiting, bloody stools or diarrhea [] : Denies dysuria or hematuria [] Musculoskeletal: Denies back pain or joint pain [] Integument: See history of present illness Neurologic: Denies headache, focal weakness or sensory changes [] Endocrine: Denies polyuria or polydipsia [] All other systems were reviewed and found to be within normal limits, except as documented in this note. Current Medications Current Medications Current Medications Medications (Trade) Dose Ordered Sig/Aureliano Start Time Stop Time Status Last Admin Dose Admin Alprazolam (Xanax) 0.5 mg 1X ONCE 12/30/18 14:45 12/30/18 14:46 DC 12/30/18 15:03 0.5 MG Allergies Allergies Allergies Coded Allergies Type Severity Reaction Last Updated Verified Penicillins Allergy Intermediate 09/30/17 Yes cephalexin Allergy Mild hives 09/30/17 Yes codeine Adverse Reaction Mild vomiting 09/30/17 Yes Physical Exam Physical Exam Constitutional: Well developed, well nourished, no acute distress, non-toxic appearance. [] Neck: Normal range of motion, no tenderness, supple, no stridor. [] Cardiovascular:Heart rate regular rhythm, no murmur [] Lungs & Thorax: Bilateral breath sounds clear to auscultation [] Abdomen: Bowel sounds normal, soft, no tenderness, no masses, no pulsatile masses. [] Skin: Warm, dry, no erythema, no rash. [] Back: No tenderness, no CVA tenderness. [] Extremities: No tenderness, no cyanosis, no clubbing, ROM intact, no edema. [] Neurologic: Alert and oriented X 3, normal motor function, normal sensory function, no focal deficits noted. [] Psychologic: The patient is anxious.[] Current Patient Data Vital Signs Vital Signs Date Time Temp Pulse Resp B/P (MAP) Pulse Ox O2 Delivery O2 Flow Rate FiO2 12/30/18 15:13 98.6 82 16 125/85 (98) 99 Room Air 98.6 Lab Values Laboratory Tests Test 12/30/18 14:20 12/30/18 15:12 Urine Collection Type Unknown Urine Color Yellow Urine Clarity Clear Urine pH 6.0 Urine Specific [place] 1.015 Urine Protein Negative mg/dL (NEG-TRACE) Urine Glucose (UA) Negative mg/dL (NEG) Urine Ketones (Stick) Negative mg/dL (NEG) Urine Blood Negative (NEG) Urine Nitrite Negative (NEG) Urine Bilirubin Negative (NEG) Urine Urobilinogen Dipstick 0.2 mg/dL (0.2 mg/dL) Urine Leukocyte Esterase Negative (NEG) Urine RBC 0 /HPF (0-2) Urine WBC Rare /HPF (0-4) Urine Squamous Epithelial Cells Few /LPF Urine Bacteria 0 /HPF (0-FEW) Urine Opiates Screen Neg (NEG) Urine Methadone Screen Neg (NEG) Urine Barbiturates Neg (NEG) Urine Phencyclidine Screen Neg (NEG) Urine Amphetamine/Methamphetamine Neg (NEG) Urine Benzodiazepines Screen Neg (NEG) Urine Cocaine Screen Neg (NEG) Urine Cannabinoids Screen Neg (NEG) Urine Ethyl Alcohol Neg (NEG) White Blood Count 7.2 x10^3/uL (4.0-11.0) Red Blood Count 4.49 x10^6/uL (3.50-5.40) Hemoglobin 13.3 g/dL (12.0-15.5) Hematocrit 39.5 % (36.0-47.0) Mean Corpuscular Volume 88 fL (79-100) Mean Corpuscular Hemoglobin 30 pg (25-35) Mean Corpuscular Hemoglobin Concent 34 g/dL (31-37) Red Cell Distribution Width 13.8 % (11.5-14.5) Platelet Count 282 x10^3/uL (140-400) Neutrophils (%) (Auto) 50 % (31-73) Lymphocytes (%) (Auto) 38 % (24-48) Monocytes (%) (Auto) 8 % (0-9) Eosinophils (%) (Auto) 3 % (0-3) Basophils (%) (Auto) 1 % (0-3) Neutrophils # (Auto) 3.6 x10^3uL (1.8-7.7) Lymphocytes # (Auto) 2.7 x10^3/uL (1.0-4.8) Monocytes # (Auto) 0.6 x10^3/uL (0.0-1.1) Eosinophils # (Auto) 0.2 x10^3/uL (0.0-0.7) Basophils # (Auto) 0.0 x10^3/uL (0.0-0.2) Sodium Level 140 mmol/L (136-145) Potassium Level 4.4 mmol/L (3.5-5.1) Chloride Level 104 mmol/L (98-107) Carbon Dioxide Level 30 mmol/L (21-32) Anion Gap 6 (6-14) Blood Urea Nitrogen 18 mg/dL (7-20) Creatinine 0.8 mg/dL (0.6-1.0) Estimated GFR (Cockcroft-Gault) 75.0 BUN/Creatinine Ratio 23 (6-20) H Glucose Level 84 mg/dL (70-99) Calcium Level 9.1 mg/dL (8.5-10.1) Total Bilirubin 0.2 mg/dL (0.2-1.0) Aspartate Amino Transferase (AST) 235 U/L (15-37) H Alanine Aminotransferase (ALT) 138 U/L (14-59) H Alkaline Phosphatase 74 U/L (46-116) Total Protein 9.4 g/dL (6.4-8.2) H Albumin 3.2 g/dL (3.4-5.0) L Albumin/Globulin Ratio 0.5 (1.0-1.7) L Laboratory Tests 12/30/18 15:12 Laboratory Tests 12/30/18 15:12 EKG EKG [] Radiology/Procedures Radiology/Procedures [] Course & Med Decision Making Course & Med Decision Making Pertinent Labs and Imaging studies reviewed. (See chart for details) []The patient's liver enzymes are elevated. With her pruritus I am concerned she might have primary biliary cirrhosis. She is to follow-up for further evaluation of this condition. She has been given a small amount of Xanax control her anxiety. Annaon Disclaimer Annaon Disclaimer This electronic medical record was generated, in whole or in part, using a voice recognition dictation system. Departure Departure Impression: Primary Impression: Pruritic dermatitis Additional Impressions: Transaminitis Anxiety Disposition: HOME, SELF-CARE Condition: STABLE Referrals: NO PCP (PCP) ROXANNE CINTRON MD Patient Instructions: Anxiety and Panic Attacks, Primary Biliary Cirrhosis, Pruritus Additional Instructions: Take the medication as directed. Follow up with the services that Thomas arranged for you. Follow-up with the GI specialists listed on the paper for further evaluation of your symptoms. If worsening return to the emergency department. Scripts Alprazolam (XANAX) 0.5 Mg Tablet 1 TAB PO BID for anxiety, #10 TAB Prov: MARTY MENDIOLA APRN 12/30/18 Problem Qualifiers MARTY MENDIOLA APRN Dec 30, 2018 16:05
== END 2018-12-30 16:53 | disposition home or self-care (01) ==
LOC: ER 13:21
DX: F41.9 Anxiety disorder, unspecified (principal); L30.8 Other specified dermatitis; R74.0 Nonspecific elevation of levels of transaminase and lactic acid dehydrogenase [LDH]; F31.9 Bipolar disorder, unspecified; Z88.0 Allergy status to penicillin; Z88.1 Allergy status to other antibiotic agents; Z88.5 Allergy status to narcotic agent
CPT/HCPCS: 36415; 80053; 80307; 81001; 85025; 99284

== ENCOUNTER 2019-06-25 22:05 | Emergency (ER) | payer SELFPAY ==
[~2019-06-25] VITALS: Ht 157.5 cm; Wt 54.4 kg
[~2019-06-25 22:05] MED LIST changes: +ALPR0.5T PO
[2019-06-25 22:13] VITALS: BP 132/86
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
[2019-06-25] MEDS ORDERED: IBUPROFEN 400 MG TABLET. PO ONE (23:00)
--- NOTE | 2019-06-25 23:27 | RAD ---
CT cervical spine without contrast PQRS statement: CT scans at this facility use dose reduction including either automated exposure control, iterative reconstructions, and /or weight based radiation dosing via mA and kV modification when appropriate to reduce radiation dose to as low as reasonably achievable. HISTORY: Neck pain. History of cervical spinal fusion. Right upper extremity tingling paresthesia. TECHNIQUE: Helical multiplanar reconstructed noncontrast imaging of the cervical spine was acquired. FINDINGS: Craniocervical junction intact. Cervical vertebral body height and alignment intact. 2 mm anterolisthesis of C3 on C4 and 1 mm anterolisthesis of C7 on T1. Postoperative changes of cervical fusion with articular pillar screws and rods at C5 and C6 extending inferiorly to pedicle screws and rods at the upper thoracic vertebra at T1 and T2. Laminotomies at C6 and C7. The right T1 and T2 pedicle screws are lateral and outside of the pedicles. No bone lysis surrounding the hardware to suggest loosening. No fracture. Apical paraseptal pulmonary emphysema. Subcentimeter hypodense right thyroid nodule. Multilevel disc height loss as well as disc bulges and endplate spurring as well as uncovertebral and facet spurs most notable at C3-C4 and C4-C5 likely contributing to mild/moderate spinal canal stenoses and moderate/severe neural foraminal stenoses. IMPRESSION: No acute osseous injury of the cervical spine. Postsurgical changes as described above. Cervical disc disease as described above. Subcentimeter right thyroid lobe nodule. Electronically signed by: Miguel Bliss MD (06/25/2019 11:24 PM) [facility]
[2019-06-25] MEDS ORDERED: CYCL10TA2 PO (23:35)
== END 2019-06-25 23:45 | disposition home or self-care (01) ==
LOC: ER 22:05
DX: M54.2 Cervicalgia (principal); I10 Essential (primary) hypertension; Z88.0 Allergy status to penicillin; Z88.1 Allergy status to other antibiotic agents; Z88.5 Allergy status to narcotic agent
CPT/HCPCS: 72125; 99284

== ENCOUNTER 2019-09-08 00:27 | Emergency (ER) | payer SELFPAY ==
[~2019-09-08] VITALS: Ht 157.5 cm; Wt 52.2 kg
--- NOTE | 2019-09-08 01:25 | PHYS DOC ---
Past Medical History Past Medical History: COPD, Hypertension, Migraines Past Surgical History: Other Additional Past Surgical Histo: neck, back, right foot Alcohol Use: None Drug Use: None Adult General Chief Complaint Chief Complaint: HEADACHE HPI HPI Patient is a 54 year old homeless female with history of hypertension, migraine headaches, COPD and currently smoking who presents by EMS with complaint of headache. Patient complaining of bilateral frontal pain with radiation to back of her head as a throbbing pain since this afternoon and rated her pain 7/10. Patient complaining of nausea and photophobia and denies fever and chills, neck pain, focal neuro deficit. Patient states the pain is like her previous episodes of migraine headache. Patient also complaining of productive cough for the last 2 weeks with subjective fever that getting worse with smoking and cold weather. Patient denies using drugs and alcohol. Review of Systems Review of Systems Constitutional: Denies fever or chills [] Eyes: Denies change in visual acuity, redness, or eye pain [] HENT: Denies nasal congestion or sore throat [] Respiratory: Reports cough Cardiovascular: No additional information not addressed in HPI [] GI: Denies abdominal pain, vomiting, bloody stools or diarrhea [] : Denies dysuria or hematuria [] Musculoskeletal: Denies back pain or joint pain [] Integument: Denies rash or skin lesions [] Neurologic: Reports headache, denies focal weakness or sensory changes [] Endocrine: Denies polyuria or polydipsia [] All other systems were reviewed and found to be within normal limits, except as documented in this note. Current Medications Current Medications Current Medications Medications (Trade) Dose Ordered Sig/[facility] Start Time Stop Time Status Last Admin Dose Admin Fentanyl Citrate (Fentanyl 2ml Vial) 50 mcg 1X ONCE 09/08/19 02:30 09/08/19 02:31 DC Lidocaine HCl (Lidocaine 1% 20ml Vial) 20 ml 1X ONCE 09/08/19 01:30 09/08/19 01:31 DC Allergies Allergies Allergies Coded Allergies Type Severity Reaction Last Updated Verified Penicillins Allergy Intermediate 09/30/17 Yes cephalexin Allergy Mild hives 09/30/17 Yes codeine Adverse Reaction Mild vomiting 09/30/17 Yes Physical Exam Physical Exam Constitutional: Well nourished, mild distress, non-toxic appearance. [] HENT: Normocephalic, atraumatic. Eyes: PERRLA, EOMI, conjunctiva normal, no discharge. [] Neck: Normal range of motion, no tenderness, supple, no stridor. [] Cardiovascular:Heart rate regular rhythm, no murmur [] Lungs & Thorax: Bilateral breath sounds clear to auscultation [] Abdomen: Bowel sounds normal, soft, no tenderness, no masses, no pulsatile masses. [] Skin: Warm, dry, no erythema, no rash. [] Back: No tenderness, no CVA tenderness. [] Extremities: No tenderness, no cyanosis, no clubbing, ROM intact, no edema. [] Neurologic: Alert and oriented X 3, no focal deficits noted. [] Psychologic: Affect normal, judgement normal, mood normal. [] Current Patient Data Vital Signs Vital Signs Date Time Temp Pulse Resp B/P (MAP) Pulse Ox O2 Delivery O2 Flow Rate FiO2 09/08/19 01:36 72 18 96 09/08/19 00:28 97.1 129/68 (88) Room Air 97.1 EKG EKG [] Radiology/Procedures Radiology/Procedures [] Course & Med Decision Making Course & Med Decision Making Evaluation of patient in ER showed 54-year-old homeless female patient brought in by EMS because of headache. Patient had unremarkable physical exam and treated with intranasal lidocaine with improvement of her headache. Patient also had cough for 2 weeks and prescription for doxycycline was given and was advised to quit smoking and follow up with his primary care physician. Dragon Disclaimer Dragon Disclaimer This electronic medical record was generated, in whole or in part, using a voice recognition dictation system. Departure Departure Impression: Primary Impression: Migraine headache Additional Impressions: Acute bronchitis Homelessness Disposition: HOME, SELF-CARE (at 0210) Condition: IMPROVED Referrals: NO PCP (PCP) Patient Instructions: Acute Bronchitis, Migraine Headache, Smoking Cessation, Tips For Success Additional Instructions: Drink plenty of liquids Follow-up with your primary care physician in 3-5 days Return to ER if not getting better Scripts Benzonatate (TESSALON PERLE) 100 Mg Capsule 1 CAP PO TID for cough, #21 CAP Prov: JAVIER GIORDANO MD 09/08/19 Ibuprofen (IBUPROFEN) 600 Mg Tablet 600 MG PO PRN Q6HRS PRN for PAIN, #20 TAB take with food or milk Prov: JAVIER GIORDANO MD 09/08/19 Doxycycline Hyclate (DOXYCYCLINE HYCLATE) 100 Mg Capsule 1 CAP PO BID, #14 CAP Prov: JAVIER GIORDANO MD 09/08/19 Problem Qualifiers Primary Impression: Migraine headache Migraine type: unspecified Status migrainosus presence: without status migrainosus Intractability: not intractable Qualified Codes: G43.909 - Migraine, unspecified, not intractable, without status migrainosus Additional Impressions: Acute bronchitis Bronchitis organism: unspecified organism Qualified Codes: J20.9 - Acute bronchitis, unspecified JAVIER GIORDANO MD Sep 08, 2019 01:25
[2019-09-08] MEDS ORDERED: LIDOCAINE 1% Multi-Dose 20 ML VIAL. INJ ONE (01:30)
[2019-09-08 01:36] VITALS: BP 122/74
[2019-09-08] MEDS ORDERED: DOXY100C2 PO (02:13)
[2019-09-08] MEDS ORDERED: BENZ100C PO (02:13)
[2019-09-08] MEDS ORDERED: IBUP-1007 PO (02:13)
[2019-09-08] MEDS ORDERED: fentaNYL PF VIAL 100 MCG/2 ML VIAL IVP ONE (02:30)
== END 2019-09-08 02:21 | disposition home or self-care (01) ==
LOC: ER 00:27
DX: G43.909 Migraine, unspecified, not intractable, without status migrainosus (principal); J20.9 Acute bronchitis, unspecified; Z59.0 Homelessness; J44.9 Chronic obstructive pulmonary disease, unspecified; I10 Essential (primary) hypertension; Z88.0 Allergy status to penicillin; Z88.5 Allergy status to narcotic agent; Z88.1 Allergy status to other antibiotic agents; F17.200 Nicotine dependence, unspecified, uncomplicated
CPT/HCPCS: 99283

== ENCOUNTER 2020-05-13 12:52 | Emergency (ER) | payer SELFPAY ==
[~2020-05-13] VITALS: Ht 157.5 cm; Wt 56.0 kg
[~2020-05-13 12:52] MED LIST changes: +BENZ100C PO; +DOXY100C2 PO; +IBUP-1007 PO
[2020-05-13 12:57] VITALS: BP 145/88
== END 2020-05-13 13:40 | disposition left against medical advice (07) ==
LOC: ER 12:52
DX: R52 Pain, unspecified (principal); Z53.21 Procedure and treatment not carried out due to patient leaving prior to being seen by health care provider

== ENCOUNTER 2020-05-14 11:31 | Emergency (ER) | payer SELFPAY ==
[2020-05-13 12:57] VITALS: BP 145/88
== END 2020-05-14 13:01 | disposition left against medical advice (07) ==
LOC: ER 11:31
DX: L02.415 Cutaneous abscess of right lower limb (principal); Z53.21 Procedure and treatment not carried out due to patient leaving prior to being seen by health care provider